=== PATIENT | female | born 1950 | race Native Hawaiian/Other Pacific Islander ===

== ENCOUNTER 2016-11-08 10:51 | Outpatient (CLI) | payer OTHER ==
[~2016-11-08 10:51] MED LIST: AMIT25TA22 PO; ATIVAN2 MG PO; BUSPIRONE10 MG PO; CALCIUM 502 PO; CELEBREX200 MG PO; CLONIDINE0.1 MG PO; D32000 UNIT PO; FURO40TA93 PO; LORA2TAB7; PANT40TA PO; STOOL SOFTNR100 MG PO; TRAM50TA PO; WELLBUTRIN150 MG PO
[2016-11-08 11:12] LABS: POTASSIUM 3.9 mmol/L (3.6-5.2); SODIUM 140 mmol/L (136-145)
== END 2016-11-08 19:01 | disposition home or self-care (01) ==
LOC: LABW 10:51
PROVIDERS: Internal Medicine Cardiovascular Disease
DX: I48.92 Unspecified atrial flutter (principal)
CPT/HCPCS: 36415; 80048

== ENCOUNTER 2016-11-16 01:16 | Outpatient (CLI) | payer OTHER ==
[2016-11-16] MEDS ORDERED: PACERONE200 MG PO (02:46)
[2016-11-16] MEDS ORDERED: ELIQUIS5 MG PO (02:46)
[2016-11-16] MEDS ORDERED: POT CHLORIDE10 MEQ PO (02:47)
[2016-11-16] MEDS ORDERED: TEMA15CA19 PO (02:47)
[2016-11-16] MEDS ORDERED: NITROSTAT0.4 MG SL (02:48)
[2016-11-16] MEDS ORDERED: IBUPROFEN200 M1 PO (02:50)
== END 2016-11-16 01:24 | disposition short-term general hospital (02) ==
LOC: AMB 01:16
DX: R07.89 Other chest pain (principal)
CPT/HCPCS: A0425; A0427

== ENCOUNTER 2016-11-16 01:25 | Observation (INO) | payer OTHER ==
[~2016-11-16] VITALS: Ht 157.5 cm; Wt 59.0 kg
[2016-11-16 02:03] VITALS: BP 128/80; TEMP 209.5
[2016-11-16 02:24] LABS: PARTIAL THROMBOPLASTIN TIME 29.1 SECONDS (24.5-33.6); PLATELET COUNT 310 K/uL (152-353)
[2016-11-16 02:28] LABS: POTASSIUM 5.1 mmol/L (3.6-5.2); SODIUM 141 mmol/L (136-145)
[2016-11-16] MEDS ORDERED: ELIQUIS5 MG PO (02:46)
[2016-11-16] MEDS ORDERED: PACERONE200 MG PO (02:46)
[2016-11-16] MEDS ORDERED: TEMA15CA19 PO (02:47)
[2016-11-16] MEDS ORDERED: POT CHLORIDE10 MEQ PO (02:47)
[2016-11-16] MEDS ORDERED: NITROSTAT0.4 MG SL (02:48)
[2016-11-16] MEDS ORDERED: IBUPROFEN200 M1 PO (02:50)
[2016-11-16 07:12] VITALS: BP 105/63; TEMP 98.6; Ht 157.5 cm; Wt 59.0 kg
--- NOTE | 2016-11-16 07:33 | NUR ---
11/16/16 0513 ADMITTED PATIENT TO ROOM 1107 DX PNEUMONIA+CHEST PAIN.ORIENTED TO ROOM CALL LIGHT WITHIN REACH.CC
[2016-11-16 08:22] VITALS: BP 93/59; TEMP 98.5
[2016-11-16 12:00] VITALS: BP 97/55; TEMP 98.7
[2016-11-16 16:00] VITALS: BP 96/58; TEMP 97.8
[2016-11-16 20:00] VITALS: BP 113/58; TEMP 98.63
[2016-11-17] VITALS: BP 107/38; TEMP 98
[2016-11-17 04:00] VITALS: BP 104/63; TEMP 97.8
[2016-11-17 04:27] LABS: PLATELET COUNT 281 K/uL (152-353)
[2016-11-17 04:32] LABS: POTASSIUM 4.2 mmol/L (3.6-5.2); SODIUM 140 mmol/L (136-145)
[2016-11-17 08:00] VITALS: BP 108/65; TEMP 98.6
[2016-11-17 12:00] VITALS: BP 106/63; TEMP 98.3
--- NOTE | 2016-11-17 13:22 | NUR ---
IV SITE D/C'D WITH TIP INTACT AND SITE CARE DONE.
--- NOTE | 2016-11-17 14:03 | NUR ---
PT OUT VIA W/C PER [facility] PCT WITH NAD.
== END 2016-11-17 14:00 | disposition home or self-care (01) ==
LOC: ED 01:25 → MED/SURG 03:15
PROVIDERS: ADMIT Emergency Medicine
DX: J18.8 Other pneumonia, unspecified organism (principal); A26.0 Cutaneous erysipeloid; R07.89 Other chest pain; R06.02 Shortness of breath
CPT/HCPCS: 36415; 80048; 80053; 81000; 82550; 83880; 84484; 85027; 85379; 85610; 85730; 86618; 87040; 93005; 94640; 94664; 94760; 96361; 96365; 96366; 96367; 99220; 99284; G0378; J1885; J2270; J2405

== ENCOUNTER 2016-11-24 10:23 | Outpatient (CLI) | payer OTHER ==
[~2016-11-24 10:23] MED LIST changes: +ELIQUIS5 MG PO; +IBUPROFEN200 M1 PO; +NITROSTAT0.4 MG SL; +PACERONE200 MG PO; +POT CHLORIDE10 MEQ PO; +TEMA15CA19 PO
== END 2016-11-24 12:00 | disposition home or self-care (01) ==
LOC: RESP 10:23
DX: R56.9 Unspecified convulsions (principal); R06.09 Other forms of dyspnea

== ENCOUNTER 2016-12-04 12:49 | Outpatient (CLI) | payer OTHER | END 2016-12-04 17:56 | disposition home or self-care (01) | LOC: LABW 12:49 | DX: J18.9 Pneumonia, unspecified organism (principal); W57.XXXA Bitten or stung by nonvenomous insect and other nonvenomous arthropods, initial encounter | CPT/HCPCS: 36415; 86618 ==

== ENCOUNTER 2017-05-22 11:44 | Outpatient (CLI) | payer OTHER ==
[2017-05-22 12:02] LABS: PLATELET COUNT 336 K/uL (152-353)
== END 2017-05-22 18:59 | disposition home or self-care (01) ==
LOC: LABW 11:44
PROVIDERS: Internal Medicine
DX: K92.1 Melena (principal)
CPT/HCPCS: 36415; 85027

== ENCOUNTER 2017-06-05 16:18 | Outpatient (CLI) | payer OTHER ==
[2017-06-05 16:34] LABS: PLATELET COUNT 666 K/uL (152-353)
== END 2017-06-06 05:22 | disposition home or self-care (01) ==
LOC: LABW 16:18
PROVIDERS: Physician Assistant
DX: D50.0 Iron deficiency anemia secondary to blood loss (chronic) (principal)
CPT/HCPCS: 36415; 85027

== ENCOUNTER 2017-06-10 08:58 | Outpatient (CLI) | payer OTHER ==
[2017-06-10 13:54] LABS: PLATELET COUNT 577 K/uL (152-353)
== END 2017-06-10 19:37 | disposition home or self-care (01) ==
LOC: RAD 08:58
PROVIDERS: Physician Assistant
DX: D50.0 Iron deficiency anemia secondary to blood loss (chronic) (principal); K92.1 Melena
CPT/HCPCS: 36415; 85027

== ENCOUNTER 2017-06-19 13:07 | Outpatient (CLI) | payer OTHER ==
[2017-06-19 15:00] LABS: PLATELET COUNT 536 K/uL (152-353)
== END 2017-06-19 19:32 | disposition home or self-care (01) ==
LOC: LABW 13:07
PROVIDERS: Internal Medicine
DX: D64.89 Other specified anemias (principal)
CPT/HCPCS: 36415; 85027

== ENCOUNTER 2017-06-30 12:23 | Outpatient (CLI) | payer OTHER ==
[2017-06-30 12:44] LABS: PLATELET COUNT 521 K/uL (152-353)
[2017-06-30 12:51] LABS: POTASSIUM 4.1 mmol/L (3.6-5.2)
== END 2017-06-30 23:04 | disposition home or self-care (01) ==
LOC: LABW 12:23
PROVIDERS: Internal Medicine
DX: K92.1 Melena (principal); N18.2 Chronic kidney disease, stage 2 (mild); D64.89 Other specified anemias
CPT/HCPCS: 36415; 80069; 85027

== ENCOUNTER 2017-07-06 13:57 | Outpatient (CLI) | payer OTHER | END 2017-07-06 20:27 | disposition home or self-care (01) | LOC: LABW 13:57 | DX: D64.89 Other specified anemias (principal) | CPT/HCPCS: 82272 ==

== ENCOUNTER 2017-07-07 10:04 | Outpatient (CLI) | payer OTHER | END 2017-07-07 20:05 | disposition home or self-care (01) | LOC: LAB 10:04 | DX: D64.89 Other specified anemias (principal) | CPT/HCPCS: 82272 ==

== ENCOUNTER 2017-07-09 11:14 | Outpatient (CLI) | payer OTHER ==
[2017-07-09 11:47] LABS: PLATELET COUNT 545 K/uL (152-353)
== END 2017-07-09 22:18 | disposition home or self-care (01) ==
LOC: LABW 11:14
PROVIDERS: Internal Medicine
DX: D64.89 Other specified anemias (principal)
CPT/HCPCS: 36415; 85027

== ENCOUNTER 2017-07-12 06:51 | Outpatient (CLI) | payer OTHER | END 2017-07-12 22:52 | disposition home or self-care (01) | LOC: LAB 06:51 | DX: D64.89 Other specified anemias (principal) | CPT/HCPCS: 82272 ==

== ENCOUNTER 2017-07-22 14:43 | Outpatient (CLI) | payer OTHER ==
[2017-07-22 15:07] LABS: PLATELET COUNT 527 K/uL (152-353)
== END 2017-07-22 22:13 | disposition home or self-care (01) ==
LOC: LABW 14:43
PROVIDERS: Internal Medicine
DX: D64.89 Other specified anemias (principal)
CPT/HCPCS: 36415; 85027

== ENCOUNTER 2017-08-18 15:40 | Outpatient (CLI) | payer OTHER ==
[2017-08-18 15:58] LABS: PLATELET COUNT 528 K/uL (152-353)
== END 2017-08-18 18:00 ==
LOC: LABW 15:40
PROVIDERS: Internal Medicine Gastroenterology
DX: D64.89 Other specified anemias (principal)
CPT/HCPCS: 36415; 85027

== ENCOUNTER 2017-08-20 12:09 | Outpatient (CLI) | payer OTHER | END 2017-08-20 22:57 | disposition home or self-care (01) | LOC: LAB 12:09 | DX: D64.89 Other specified anemias (principal) | CPT/HCPCS: 82272 ==

== ENCOUNTER 2017-08-31 14:03 | Outpatient (CLI) | payer OTHER ==
[2017-08-31 14:26] LABS: PLATELET COUNT 552 K/uL (152-353)
== END 2017-08-31 23:38 | disposition home or self-care (01) ==
LOC: LABW 14:03
PROVIDERS: Internal Medicine
DX: D64.89 Other specified anemias (principal)
CPT/HCPCS: 36415; 85027

== ENCOUNTER 2017-09-18 09:00 | Outpatient (CLI) | payer OTHER ==
[2017-09-18 09:27] LABS: PLATELET COUNT 524 K/uL (152-353)
== END 2017-09-18 22:24 | disposition home or self-care (01) ==
LOC: LABW 09:00
PROVIDERS: Internal Medicine
DX: D64.89 Other specified anemias (principal)
CPT/HCPCS: 36415; 85027

== ENCOUNTER 2017-10-06 11:18 | Outpatient (CLI) | payer OTHER ==
[2017-10-06 11:46] LABS: PLATELET COUNT 350 K/uL (152-353)
== END 2017-10-06 19:58 | disposition home or self-care (01) ==
LOC: LABW 11:18
PROVIDERS: Internal Medicine
DX: D64.89 Other specified anemias (principal)
CPT/HCPCS: 36415; 85027

== ENCOUNTER 2017-10-27 13:27 | Outpatient (CLI) | payer OTHER ==
[2017-10-27 13:47] LABS: PLATELET COUNT 366 K/uL (152-353)
== END 2017-10-27 19:53 | disposition home or self-care (01) ==
LOC: LABW 13:27
PROVIDERS: Internal Medicine
DX: D64.89 Other specified anemias (principal)
CPT/HCPCS: 36415; 85027

== ENCOUNTER 2017-11-16 13:36 | Outpatient (CLI) | payer OTHER ==
[2017-11-16 13:54] LABS: PLATELET COUNT 333 K/uL (152-353)
== END 2017-11-16 22:42 | disposition home or self-care (01) ==
LOC: LABW 13:36
PROVIDERS: Internal Medicine
DX: D64.89 Other specified anemias (principal)
CPT/HCPCS: 36415; 85027

== ENCOUNTER 2017-11-30 10:00 | Outpatient (CLI) | payer OTHER ==
[2017-11-30 10:38] LABS: PLATELET COUNT 316 K/uL (152-353)
== END 2017-11-30 19:44 | disposition home or self-care (01) ==
LOC: LABW 10:00
PROVIDERS: Internal Medicine
DX: D64.89 Other specified anemias (principal)
CPT/HCPCS: 36415; 85027

== ENCOUNTER 2018-01-01 09:00 | Outpatient (CLI) | payer OTHER ==
[2018-01-01 10:58] LABS: PLATELET COUNT 317 K/uL (152-353)
== END 2018-01-01 19:16 | disposition home or self-care (01) ==
LOC: LABW 09:00
PROVIDERS: Internal Medicine
DX: D64.9 Anemia, unspecified (principal); J18.9 Pneumonia, unspecified organism; R68.83 Chills (without fever)
CPT/HCPCS: 36415; 85027

== ENCOUNTER 2018-07-07 15:51 | Outpatient (CLI) | payer OTHER ==
[2018-07-07 16:04] LABS: PLATELET COUNT 337 K/uL (152-353)
== END 2018-07-07 19:29 | disposition home or self-care (01) ==
LOC: LABW 15:51
PROVIDERS: Internal Medicine
DX: D64.9 Anemia, unspecified (principal)
CPT/HCPCS: 83540; 85027

== ENCOUNTER 2018-07-28 10:56 | Outpatient (CLI) | payer OTHER ==
[2018-07-28 11:17] LABS: PLATELET COUNT 312 K/uL (152-353)
[2018-07-28 12:07] LABS: POTASSIUM 3.6 mmol/L (3.6-5.2)
== END 2018-07-28 19:46 | disposition home or self-care (01) ==
LOC: LABW 10:56
PROVIDERS: Internal Medicine
DX: E11.9 Type 2 diabetes mellitus without complications (principal)
CPT/HCPCS: 36415; 80053; 80061; 81000; 82043; 82570; 83036; 84439; 84443; 85027

== ENCOUNTER 2019-01-04 09:05 | Outpatient (CLI) | payer OTHER ==
[2019-01-04 10:23] LABS: POTASSIUM 4.2 mmol/L (3.6-5.2)
[2019-01-04 10:37] LABS: PLATELET COUNT 297 K/uL (152-353)
== END 2019-01-04 23:15 | disposition home or self-care (01) ==
LOC: LABW 09:05
PROVIDERS: Internal Medicine
DX: I48.92 Unspecified atrial flutter (principal); E11.9 Type 2 diabetes mellitus without complications; M81.0 Age-related osteoporosis without current pathological fracture; F32.89 Other specified depressive episodes
CPT/HCPCS: 36415; 80053; 80061; 81000; 82306; 83036; 84439; 84443; 85027

== ENCOUNTER 2019-03-29 15:42 | Outpatient (CLI) | payer OTHER | END 2019-03-29 20:21 | disposition home or self-care (01) | LOC: LABW 15:42 | DX: E53.8 Deficiency of other specified B group vitamins (principal) | CPT/HCPCS: 36415; 82525; 82607 ==

== ENCOUNTER 2019-05-04 08:37 | Outpatient (CLI) | payer OTHER | END 2019-05-04 20:36 | disposition home or self-care (01) | LOC: LABW 08:37 | DX: E53.8 Deficiency of other specified B group vitamins (principal) | CPT/HCPCS: 36415; 82525; 82607 ==

== ENCOUNTER 2019-05-30 08:56 | Outpatient (CLI) | payer OTHER | END 2019-05-30 21:40 | disposition home or self-care (01) | LOC: LABW 08:56 | DX: E53.8 Deficiency of other specified B group vitamins (principal) | CPT/HCPCS: 36415; 82525; 82607 ==

== ENCOUNTER 2019-07-04 11:34 | Outpatient (CLI) | payer OTHER | END 2019-07-04 19:14 | disposition home or self-care (01) | LOC: LABW 11:34 | DX: E53.8 Deficiency of other specified B group vitamins (principal) | CPT/HCPCS: 36415; 82525; 82607 ==

== ENCOUNTER 2019-07-28 10:06 | Outpatient (CLI) | payer OTHER | END 2019-07-28 20:54 | disposition home or self-care (01) | LOC: LAB 10:06 | DX: E53.8 Deficiency of other specified B group vitamins (principal) | CPT/HCPCS: 82525; 82607 ==

== ENCOUNTER 2019-10-17 15:00 | Outpatient (CLI) | payer OTHER | END 2019-10-17 19:44 | disposition home or self-care (01) | LOC: RAD 15:00 | DX: R09.1 Pleurisy (principal) ==

== ENCOUNTER 2019-11-14 08:10 | Outpatient (CLI) | payer OTHER | END 2019-11-14 22:03 | disposition home or self-care (01) | LOC: LABW 08:10 | DX: E53.8 Deficiency of other specified B group vitamins (principal) | CPT/HCPCS: 36415; 82525; 82607 ==

== ENCOUNTER 2019-12-16 08:38 | Outpatient (CLI) | payer OTHER | END 2019-12-16 23:04 | disposition home or self-care (01) | LOC: LABW 08:38 | PROVIDERS: ATTEND Internal Medicine | DX: E53.8 Deficiency of other specified B group vitamins (principal) | CPT/HCPCS: 36415; 82525; 82607 ==

== ENCOUNTER 2019-12-27 08:50 | Outpatient (CLI) | payer OTHER | END 2019-12-27 21:22 | disposition home or self-care (01) | LOC: LABW 08:50 | DX: E53.8 Deficiency of other specified B group vitamins (principal) | CPT/HCPCS: 36415; 82525; 82607 ==

== ENCOUNTER 2020-02-17 08:08 | Outpatient (CLI) | payer OTHER | END 2020-02-17 23:23 | disposition home or self-care (01) | LOC: LABW 08:08 | DX: E53.8 Deficiency of other specified B group vitamins (principal) | CPT/HCPCS: 36415; 82525; 82607 ==

== ENCOUNTER 2020-03-19 08:47 | Emergency (ER) | payer OTHER ==
[~2020-03-19] VITALS: Ht 157.5 cm; Wt 54.4 kg
[2020-03-19 08:47] VITALS: TEMP 98.4
[2020-03-19 09:22] LABS: POTASSIUM 3.2 mmol/L (3.6-5.2)
[2020-03-19 09:54] LABS: PLATELET COUNT 256 K/uL (152-353)
[2020-03-19 13:53] VITALS: BP 97/48
== END 2020-03-19 14:06 | disposition short-term general hospital (02) ==
LOC: ED 08:47
PROVIDERS: Emergency Medicine Emergency Medical Services
PROC: 0T9B70Z Drainage of Bladder with Drainage Device, Via Natural or Artificial Opening (ICD-10-PCS; principal; 2020-03-19)
PROC: 0D9670Z Drainage of Stomach with Drainage Device, Via Natural or Artificial Opening (ICD-10-PCS; 2020-03-19)
DX: K56.609 Unspecified intestinal obstruction, unspecified as to partial versus complete obstruction (principal)
CPT/HCPCS: 43754; 51702; 80053; 81000; 83605; 83690; 85007; 85027; 87040; 96360; 96361; 96365; 99284; J2543; J3370

== ENCOUNTER 2020-04-20 10:53 | Outpatient (CLI) | payer OTHER ==
[2020-04-20 11:26] LABS: PLATELET COUNT 443 K/uL (152-353)
== END 2020-04-20 19:32 | disposition home or self-care (01) ==
LOC: LAB 10:53
PROVIDERS: ATTEND Internal Medicine
DX: Z48.815 Encounter for surgical aftercare following surgery on the digestive system (principal); K56.51 Intestinal adhesions [bands], with partial obstruction; K63.1 Perforation of intestine (nontraumatic); E11.9 Type 2 diabetes mellitus without complications; K21.9 Gastro-esophageal reflux disease without esophagitis; D51.0 Vitamin B12 deficiency anemia due to intrinsic factor deficiency; E03.8 Other specified hypothyroidism
CPT/HCPCS: 80053; 81000; 83036; 84439; 84443; 85027

== ENCOUNTER 2020-05-03 10:51 | Emergency (ER) | payer OTHER ==
[~2020-05-03] VITALS: Ht 157.5 cm; Wt 51.7 kg
[2020-05-03 12:20] VITALS: BP 115/71; TEMP 97.5
== END 2020-05-03 12:20 | disposition home or self-care (01) ==
LOC: ED 10:51
DX: U07.1 COVID-19 (principal)
CPT/HCPCS: 87635; 99282; U0003

== ENCOUNTER 2020-08-14 12:48 | Outpatient (CLI) | payer OTHER | END 2020-08-14 20:49 | disposition home or self-care (01) | LOC: LAB 12:48 | PROVIDERS: ATTEND Internal Medicine | DX: E53.8 Deficiency of other specified B group vitamins (principal) | CPT/HCPCS: 82607 ==

== ENCOUNTER 2020-08-15 10:32 | Outpatient (CLI) | payer OTHER | END 2020-08-15 22:11 | disposition home or self-care (01) | LOC: LAB 10:32 | PROVIDERS: ATTEND Internal Medicine | DX: E53.8 Deficiency of other specified B group vitamins (principal) | CPT/HCPCS: 82525 ==

== ENCOUNTER 2020-09-12 11:03 | Outpatient (CLI) | payer OTHER | END 2020-09-12 21:32 | disposition home or self-care (01) | LOC: LAB 11:03 | PROVIDERS: ATTEND Internal Medicine | DX: D51.8 Other vitamin B12 deficiency anemias (principal) | CPT/HCPCS: 82525; 82607 ==

== ENCOUNTER 2020-10-09 13:00 | Outpatient (CLI) | payer OTHER | END 2020-10-09 22:04 | disposition home or self-care (01) | LOC: LAB 13:00 | PROVIDERS: ATTEND Internal Medicine | DX: E53.8 Deficiency of other specified B group vitamins (principal) | CPT/HCPCS: 82525; 82607 ==

== ENCOUNTER 2020-11-06 14:28 | Outpatient (CLI) | payer OTHER | END 2020-11-06 22:46 | disposition home or self-care (01) | LOC: LAB 14:28 | PROVIDERS: ATTEND Internal Medicine | DX: E11.9 Type 2 diabetes mellitus without complications (principal); E53.8 Deficiency of other specified B group vitamins | CPT/HCPCS: 82525; 82607 ==

== ENCOUNTER 2020-11-28 12:00 | Outpatient (CLI) | payer OTHER ==
[2020-12-05 14:22] LABS: PLATELET COUNT 334 K/uL (152-353)
[2020-12-05 14:23] LABS: POTASSIUM 4.6 mmol/L (3.6-5.2)
== END 2020-11-28 23:59 | disposition home or self-care (01) ==
LOC: LAB 12:00
PROVIDERS: ATTEND Internal Medicine
DX: E11.9 Type 2 diabetes mellitus without complications (principal); D51.9 Vitamin B12 deficiency anemia, unspecified
CPT/HCPCS: 80053; 80061; 81000; 82043; 82570; 83036; 84439; 84443; 85027

== ENCOUNTER 2020-12-04 12:20 | Outpatient (CLI) | payer OTHER | END 2020-12-04 19:17 | disposition home or self-care (01) | LOC: LAB 12:20 | PROVIDERS: ATTEND Internal Medicine | DX: D51.8 Other vitamin B12 deficiency anemias (principal); D64.89 Other specified anemias; M79.10 Myalgia, unspecified site | CPT/HCPCS: 82525; 82607 ==

== ENCOUNTER 2020-12-12 09:35 | Outpatient (CLI) | payer OTHER ==
[~2020-12-12] VITALS: Ht 157.5 cm; Wt 55.8 kg
== END 2020-12-12 21:28 | disposition home or self-care (01) ==
LOC: INF 09:35
PROVIDERS: ATTEND Internal Medicine
DX: D50.8 Other iron deficiency anemias (principal)
CPT/HCPCS: 96365; Q0138

== ENCOUNTER 2020-12-20 10:54 | Outpatient (CLI) | payer OTHER ==
[~2020-12-20] VITALS: Ht 157.5 cm; Wt 55.8 kg
[2020-12-20 11:29] VITALS: BP 102/59; TEMP 98.9
== END 2020-12-20 21:04 | disposition home or self-care (01) ==
LOC: INF 10:54
PROVIDERS: ATTEND Internal Medicine
DX: D50.9 Iron deficiency anemia, unspecified (principal)
CPT/HCPCS: 96365; Q0138

== ENCOUNTER 2021-01-01 09:31 | Outpatient (CLI) | payer OTHER | END 2021-01-01 19:19 | disposition home or self-care (01) | LOC: LABW 09:31 | PROVIDERS: ATTEND Internal Medicine | DX: D64.9 Anemia, unspecified (principal) | CPT/HCPCS: 36415; 82728 ==

== ENCOUNTER 2021-01-18 12:42 | Outpatient (CLI) | payer OTHER | END 2021-01-18 19:07 | disposition home or self-care (01) | LOC: LABW 12:42 | PROVIDERS: ATTEND Internal Medicine | DX: D64.9 Anemia, unspecified (principal); D51.9 Vitamin B12 deficiency anemia, unspecified; M79.10 Myalgia, unspecified site | CPT/HCPCS: 36415; 82525; 82607; 82728 ==

== ENCOUNTER 2021-03-08 13:57 | Outpatient (CLI) | payer OTHER | END 2021-03-08 19:45 | disposition home or self-care (01) | LOC: LABW 13:57 | PROVIDERS: ATTEND Internal Medicine | DX: D64.89 Other specified anemias (principal); D51.8 Other vitamin B12 deficiency anemias; M79.18 Myalgia, other site | CPT/HCPCS: 36415; 82525; 82607 ==

== ENCOUNTER 2021-06-25 11:41 | Outpatient (CLI) | payer OTHER | END 2021-06-25 19:01 | disposition home or self-care (01) | LOC: CT 11:41 | PROVIDERS: ATTEND Internal Medicine | DX: S09.8XXA Other specified injuries of head, initial encounter (principal); R09.1 Pleurisy; M25.552 Pain in left hip; Z79.899 Other long term (current) drug therapy; Z91.81 History of falling; Y92.9 Unspecified place or not applicable; E11.9 Type 2 diabetes mellitus without complications; E03.8 Other specified hypothyroidism; D51.0 Vitamin B12 deficiency anemia due to intrinsic factor deficiency; E61.0 Copper deficiency | CPT/HCPCS: 36415; 80061; 81000; 82525; 82607; 83036; 84439; 84443 ==

== ENCOUNTER 2021-08-05 13:42 | Outpatient (CLI) | payer OTHER | END 2021-08-05 19:45 | disposition home or self-care (01) | LOC: RAD 13:42 | PROVIDERS: ATTEND Physician Assistant | DX: M79.672 Pain in left foot (principal) ==

== ENCOUNTER 2021-10-30 11:17 | Outpatient (CLI) | payer OTHER | END 2021-10-30 19:14 | disposition home or self-care (01) | LOC: CT 11:17 | PROVIDERS: ATTEND Internal Medicine | DX: M54.42 Lumbago with sciatica, left side (principal); M25.552 Pain in left hip ==

== ENCOUNTER 2021-12-03 10:14 | Outpatient (CLI) | payer OTHER ==
[2021-12-03 11:04] LABS: PLATELET COUNT 259 K/uL (152-353)
== END 2021-12-03 18:52 | disposition home or self-care (01) ==
LOC: LABW 10:14
PROVIDERS: ATTEND Internal Medicine
DX: R79.89 Other specified abnormal findings of blood chemistry (principal); D64.89 Other specified anemias
CPT/HCPCS: 36415; 84439; 84443; 85027

== ENCOUNTER 2021-12-23 09:07 | Emergency (ER) | payer OTHER ==
[~2021-12-23] VITALS: Ht 157.5 cm; Wt 55.8 kg
[2021-12-23 09:13] VITALS: TEMP 97.3
[2021-12-23 10:06] LABS: PLATELET COUNT 278 K/uL (152-353)
[2021-12-23 10:27] LABS: POTASSIUM 4.5 mmol/L (3.6-5.2)
[2021-12-23 12:37] VITALS: BP 148/72
== END 2021-12-23 12:59 | disposition home or self-care (01) ==
LOC: ED 09:07
PROVIDERS: Emergency Medicine Emergency Medical Services
DX: S00.03XA Contusion of scalp, initial encounter (principal); S16.1XXA Strain of muscle, fascia and tendon at neck level, initial encounter; S29.012A Strain of muscle and tendon of back wall of thorax, initial encounter; S39.012A Strain of muscle, fascia and tendon of lower back, initial encounter; R07.89 Other chest pain; W19.XXXA Unspecified fall, initial encounter; Z91.81 History of falling; Y92.89 Other specified places as the place of occurrence of the external cause
CPT/HCPCS: 80048; 83735; 85027; 93005; 99283

== ENCOUNTER 2022-01-08 13:03 | Outpatient (CLI) | payer OTHER ==
[~2022-01-08] VITALS: Ht 157.5 cm; Wt 56.2 kg
[2022-01-08 13:10] VITALS: BP 122/90; TEMP 98.5
== END 2022-01-08 19:25 | disposition home or self-care (01) ==
LOC: INF 13:03
PROVIDERS: ATTEND Internal Medicine
DX: D50.0 Iron deficiency anemia secondary to blood loss (chronic) (principal)
CPT/HCPCS: Q0138

== ENCOUNTER 2022-01-15 12:35 | Outpatient (CLI) | payer OTHER ==
[~2022-01-15] VITALS: Ht 157.5 cm; Wt 56.2 kg
[2022-01-15 12:40] VITALS: BP 145/71; TEMP 98.4
[2022-01-15 14:05] VITALS: BP 135/66; TEMP 98.3
== END 2022-01-15 23:00 | disposition home or self-care (01) ==
LOC: INF 12:35
PROVIDERS: ATTEND Internal Medicine
DX: D50.0 Iron deficiency anemia secondary to blood loss (chronic) (principal)
CPT/HCPCS: 96365; Q0138

== ENCOUNTER 2022-03-10 10:11 | Outpatient (CLI) | payer OTHER ==
[2022-03-10 10:44] LABS: PLATELET COUNT 267 K/uL (152-353)
[2022-03-10 11:07] LABS: POTASSIUM 4.6 mmol/L (3.6-5.2)
== END 2022-03-10 18:59 | disposition home or self-care (01) ==
LOC: LABW 10:11
PROVIDERS: ATTEND Internal Medicine
DX: I10 Essential (primary) hypertension (principal); E03.8 Other specified hypothyroidism; E11.9 Type 2 diabetes mellitus without complications; G60.8 Other hereditary and idiopathic neuropathies; Z85.3 Personal history of malignant neoplasm of breast; Z08 Encounter for follow-up examination after completed treatment for malignant neoplasm
CPT/HCPCS: 36415; 80053; 83036; 83540; 83735; 84439; 84443; 85027; 86300

== ENCOUNTER 2022-03-11 12:42 | Outpatient (CLI) | payer OTHER | END 2022-03-11 19:36 | disposition home or self-care (01) | LOC: LAB 12:42 | PROVIDERS: ATTEND Internal Medicine | DX: E11.9 Type 2 diabetes mellitus without complications (principal); I10 Essential (primary) hypertension; G60.8 Other hereditary and idiopathic neuropathies | CPT/HCPCS: 36415; 81002; 82525 ==

== ENCOUNTER 2022-08-05 11:34 | Outpatient (CLI) | payer OTHER ==
[2022-08-05 12:03] LABS: PLATELET COUNT 268 K/uL (152-353)
[2022-08-05 12:31] LABS: POTASSIUM 4.3 mmol/L (3.6-5.2)
== END 2022-08-05 20:39 | disposition home or self-care (01) ==
LOC: LABW 11:34
PROVIDERS: ATTEND Internal Medicine
DX: I10 Essential (primary) hypertension (principal); E61.0 Copper deficiency; F32.9 Major depressive disorder, single episode, unspecified; R79.89 Other specified abnormal findings of blood chemistry
CPT/HCPCS: 36415; 80053; 80061; 82525; 83540; 84439; 84443; 85027

== ENCOUNTER 2022-08-07 12:01 | Outpatient (CLI) | payer OTHER ==
[~2022-08-07] VITALS: Ht 157.5 cm; Wt 61.7 kg
[2022-08-07 12:15] VITALS: BP 154/67; TEMP 97.9
== END 2022-08-07 16:00 | disposition home or self-care (01) ==
LOC: INF 12:01
PROVIDERS: ATTEND Internal Medicine
DX: N39.0 Urinary tract infection, site not specified (principal)
CPT/HCPCS: 96365; J0696

== ENCOUNTER 2022-08-08 10:10 | Outpatient (CLI) | payer OTHER ==
[~2022-08-08] VITALS: Ht 157.5 cm; Wt 197.8 kg
[2022-08-08 10:18] VITALS: BP 147/68; TEMP 98.2
[2022-08-08 11:22] VITALS: BP 145/73; TEMP 98.3
== END 2022-08-08 19:30 | disposition home or self-care (01) ==
LOC: INF 10:10
PROVIDERS: ATTEND Internal Medicine
DX: N39.0 Urinary tract infection, site not specified (principal)
CPT/HCPCS: 96365; J0696

== ENCOUNTER 2022-08-09 11:53 | Outpatient (CLI) | payer OTHER ==
[~2022-08-09] VITALS: Ht 157.5 cm; Wt 61.7 kg
== END 2022-08-09 18:56 | disposition home or self-care (01) ==
LOC: INF 11:53
PROVIDERS: ATTEND Internal Medicine
DX: N39.0 Urinary tract infection, site not specified (principal)
CPT/HCPCS: 96365; J0696

== ENCOUNTER 2022-08-10 13:18 | Outpatient (CLI) | payer OTHER ==
[~2022-08-10] VITALS: Ht 157.5 cm; Wt 61.7 kg
== END 2022-08-10 19:30 | disposition home or self-care (01) ==
LOC: INF 13:18
PROVIDERS: ATTEND Internal Medicine
DX: N39.0 Urinary tract infection, site not specified (principal)
CPT/HCPCS: 96365; J0696

== ENCOUNTER 2022-08-11 12:15 | Outpatient (CLI) | payer OTHER ==
[~2022-08-11] VITALS: Ht 157.5 cm; Wt 61.7 kg
[2022-08-11 12:22] VITALS: BP 128/57; TEMP 98.1
[2022-08-11 13:08] VITALS: BP 129/59; TEMP 98.1
== END 2022-08-11 19:05 | disposition home or self-care (01) ==
LOC: INF 12:15
PROVIDERS: ATTEND Internal Medicine
DX: N39.0 Urinary tract infection, site not specified (principal)
CPT/HCPCS: 96365; J0696

== ENCOUNTER 2022-08-13 11:42 | Outpatient (CLI) | payer OTHER ==
[~2022-08-13] VITALS: Ht 157.5 cm; Wt 61.7 kg
[2022-08-13 11:50] VITALS: BP 154/74; TEMP 98.1
[2022-08-13 12:53] VITALS: BP 160/76; TEMP 98.2
== END 2022-08-13 19:41 | disposition home or self-care (01) ==
LOC: INF 11:42
PROVIDERS: ATTEND Internal Medicine
DX: N39.0 Urinary tract infection, site not specified (principal)
CPT/HCPCS: 96365; J0696

== ENCOUNTER 2022-08-20 13:28 | Outpatient (CLI) | payer OTHER | END 2022-08-20 23:05 | LOC: LABW 13:28 | PROVIDERS: ATTEND Internal Medicine | DX: N39.0 Urinary tract infection, site not specified (principal) | CPT/HCPCS: 87086; 87088 ==

== ENCOUNTER 2022-09-22 13:35 | Outpatient (CLI) | payer OTHER | END 2022-09-22 19:00 | disposition home or self-care (01) | LOC: CT 13:35 | PROVIDERS: ATTEND Nurse Practitioner Family | DX: R51.9 Headache, unspecified (principal) ==

== ENCOUNTER 2022-10-23 13:36 | Outpatient (CLI) | payer OTHER | END 2022-10-23 17:00 | disposition home or self-care (01) | LOC: LAB 13:36 | PROVIDERS: ATTEND Nurse Practitioner Family | DX: N39.0 Urinary tract infection, site not specified (principal) | CPT/HCPCS: 81002; 87086; 87088 ==

== ENCOUNTER 2022-12-01 11:12 | Outpatient (CLI) | payer OTHER ==
[2022-12-01 11:34] LABS: PLATELET COUNT 309 K/uL (152-353)
[2022-12-01 11:48] LABS: POTASSIUM 4.8 mmol/L (3.6-5.2)
== END 2022-12-01 19:27 | disposition home or self-care (01) ==
LOC: LAB 11:12
PROVIDERS: ATTEND Internal Medicine
DX: I10 Essential (primary) hypertension (principal); D64.89 Other specified anemias
CPT/HCPCS: 80053; 85027

== ENCOUNTER 2022-12-02 22:08 | Emergency (ER) | payer OTHER ==
[~2022-12-02] VITALS: Ht 157.5 cm; Wt 61.2 kg
[2022-12-02 22:58] LABS: PLATELET COUNT 301 K/uL (152-353)
[2022-12-02 22:59] LABS: POTASSIUM 3.9 mmol/L (3.6-5.2)
[2022-12-03 01:45] VITALS: BP 134/77; TEMP 98.2
== END 2022-12-03 01:45 | disposition home or self-care (01) ==
LOC: ED 22:08
PROVIDERS: Family Medicine
DX: S00.03XA Contusion of scalp, initial encounter (principal); W19.XXXA Unspecified fall, initial encounter
CPT/HCPCS: 36415; 80053; 81002; 85027; 99284

== ENCOUNTER 2023-01-07 12:47 | Outpatient (CLI) | payer OTHER | END 2023-01-07 19:49 | disposition home or self-care (01) | LOC: LAB 12:47 | PROVIDERS: ATTEND Internal Medicine | DX: R30.0 Dysuria (principal) | CPT/HCPCS: 81000; 87077; 87086; 87088; 87186 ==

== ENCOUNTER 2023-01-08 16:47 | Emergency (ER) | payer OTHER ==
[~2023-01-08] VITALS: Ht 157.5 cm; Wt 56.7 kg
[2023-01-08 16:47] VITALS: TEMP 98.7
[2023-01-08 17:48] LABS: PLATELET COUNT 252 K/uL (152-353)
[2023-01-08 17:54] LABS: POTASSIUM 4.8 mmol/L (3.6-5.2)
[2023-01-08 19:36] VITALS: BP 131/74
== END 2023-01-08 19:36 | disposition short-term general hospital (02) ==
LOC: ED 16:47
PROVIDERS: Family Medicine
DX: I63.9 Cerebral infarction, unspecified (principal); N39.0 Urinary tract infection, site not specified; R41.0 Disorientation, unspecified
CPT/HCPCS: 51702; 80053; 81000; 83735; 84484; 85027; 87088; 93005; 96374; 99285; J2405

== ENCOUNTER 2023-02-05 10:07 | Inpatient (IN) | payer OTHER ==
[~2023-02-05] VITALS: Ht 157.5 cm; Wt 56.4 kg
[2023-02-05 10:07] VITALS: BP 120/56; TEMP 98.2
[2023-02-05 11:15] VITALS: BP 105/63
[2023-02-05 11:24] LABS: PLATELET COUNT 267 K/uL (152-353)
[2023-02-05 11:29] LABS: POTASSIUM 3.5 mmol/L (3.6-5.2)
[2023-02-05 14:07] VITALS: BP 116/55; TEMP 98.1
[2023-02-05 15:00] VITALS: BP 116/55; TEMP 98.1; Ht 157.5 cm; Wt 56.4 kg
[2023-02-05 15:42] VITALS: BP 116/55; TEMP 98.1
[2023-02-05] MEDS ORDERED: [UNRECOGNIZED DRUG - OTHER] PO (16:01)
[2023-02-05] MEDS ORDERED: PANTOPRAZOLE 40MG TA PO (16:01)
[2023-02-05] MEDS ORDERED: K-TABS10 MEQ PO (16:02)
[2023-02-05] MEDS ORDERED: SERT100T PO (16:03)
[2023-02-05] MEDS ORDERED: MOBIC7.5 M1 PO (16:03)
[2023-02-05] MEDS ORDERED: CYCL10TA35 PO (16:04)
[2023-02-05] MEDS ORDERED: LIDOPATCH TOP (16:05)
[2023-02-05] MEDS ORDERED: CYAN10009 IM (16:05)
[2023-02-05] MEDS ORDERED: BUPRENORPHINE 20 MCG/HR TD (16:06)
[2023-02-05] MEDS ORDERED: HYDROMORPHONE HY4 MG PO (16:07)
[2023-02-05] MEDS ORDERED: DQZATE100 MG PO (16:07)
[2023-02-05] MEDS ORDERED: TRAZ100T PO (16:08)
[2023-02-05] MEDS ORDERED: MOVANTIK12.5 MG PO (16:08)
[2023-02-05] MEDS ORDERED: PREG75CA PO (16:09)
[2023-02-05] MEDS ORDERED: IRON INFUSION (16:10)
[2023-02-05 20:00] VITALS: BP 103/55; TEMP 99
[2023-02-06] VITALS: BP 97/53; TEMP 98.3
[2023-02-06 04:00] VITALS: BP 116/59; TEMP 98.5
[2023-02-06 05:27] LABS: PLATELET COUNT 216 K/uL (152-353)
[2023-02-06 05:52] LABS: POTASSIUM 3.6 mmol/L (3.6-5.2)
[2023-02-06 07:52] VITALS: BP 108/61; TEMP 98.3
[2023-02-06 11:50] VITALS: BP 115/58; TEMP 98.4
[2023-02-06 15:50] VITALS: BP 109/64; TEMP 98.4
[2023-02-06 20:00] VITALS: BP 120/61; TEMP 99
[2023-02-07] VITALS: BP 91/55; TEMP 99
[2023-02-07 04:00] VITALS: BP 100/55; TEMP 98.7
[2023-02-07 06:43] LABS: PLATELET COUNT 231 K/uL (152-353)
[2023-02-07 07:14] LABS: POTASSIUM 4.1 mmol/L (3.6-5.2)
[2023-02-07 08:00] VITALS: BP 117/55; TEMP 98.3
[2023-02-07 12:09] VITALS: BP 121/63; TEMP 99
[2023-02-07 15:51] VITALS: BP 1158/57; TEMP 99
[2023-02-07 20:00] VITALS: BP 137/69; TEMP 98.5
[2023-02-08 07:51] VITALS: BP 136/61; TEMP 98.5
[2023-02-08 12:00] VITALS: BP 141/69; TEMP 98.5
== END 2023-02-08 13:22 | disposition home or self-care (01) | DRG 558 ==
LOC: ED 10:07 → MED/SURG 12:07
PROVIDERS: ADMIT Family Medicine; ATTEND Internal Medicine
DX: M62.82 Rhabdomyolysis (principal); Z86.73 Personal history of transient ischemic attack (TIA), and cerebral infarction without residual deficits; R26.81 Unsteadiness on feet; R29.6 Repeated falls; Z87.440 Personal history of urinary (tract) infections; Z98.890 Other specified postprocedural states; R51.9 Headache, unspecified; W19.XXXA Unspecified fall, initial encounter
CPT/HCPCS: 36415; 80048; 80053; 81000; 82550; 82948; 85027; 96360; 96361; 99284

== ENCOUNTER 2023-03-09 10:28 | Inpatient (IN) | payer OTHER ==
[~2023-03-09] VITALS: Ht 157.5 cm; Wt 60.1 kg
[2023-03-09 10:28] VITALS: BP 105/59; TEMP 97.3
[~2023-03-09 10:28] MED LIST changes: +BUPRENORPHINE 20 MCG/HR TD; +CYAN10009 IM; +CYCL10TA35 PO; +DQZATE100 MG PO; +HYDROMORPHONE HY4 MG PO; +IRON INFUSION; +K-TABS10 MEQ PO; +LIDOPATCH TOP; +MOBIC7.5 M1 PO; +MOVANTIK12.5 MG PO; +PANTOPRAZOLE 40MG TA PO; +PREG75CA PO; +SERT100T PO; +TRAZ100T PO; +[UNRECOGNIZED DRUG - OTHER] PO
[2023-03-09 11:28] LABS: PLATELET COUNT 383 K/uL (152-353)
[2023-03-09 14:28] VITALS: BP 115/57; TEMP 97.7
[2023-03-09 15:11] VITALS: BP 115/57; TEMP 97.4; Ht 157.5 cm; Wt 60.1 kg
[2023-03-09] MEDS ORDERED: OXYCODONE HYDRO10 MG PO (15:33)
[2023-03-09 19:30] VITALS: BP 94/55; TEMP 98.8
[2023-03-09 23:33] VITALS: BP 85/30; TEMP 98.8
[2023-03-10 03:45] VITALS: BP 79/39; TEMP 98.3
[2023-03-10 05:26] LABS: PLATELET COUNT 320 K/uL (152-353)
[2023-03-10 05:39] LABS: POTASSIUM 4.7 mmol/L (3.6-5.2)
[2023-03-10 07:57] VITALS: BP 90/44; TEMP 98.5
[2023-03-10 12:00] VITALS: BP 97/53; TEMP 98.7
[2023-03-10 16:00] VITALS: BP 109/60; TEMP 98.2
[2023-03-10 20:00] VITALS: BP 108/54; TEMP 99
[2023-03-10 23:50] VITALS: BP 100/50; TEMP 98.2
[2023-03-11 04:00] VITALS: BP 144/71; TEMP 98.3
[2023-03-11 05:10] LABS: PLATELET COUNT 274 K/uL (152-353)
[2023-03-11 05:42] LABS: POTASSIUM 4.1 mmol/L (3.6-5.2)
[2023-03-11 08:00] VITALS: BP 136/76; TEMP 97.6
[2023-03-11 12:00] VITALS: BP 136/64; TEMP 98.3
== END 2023-03-11 14:51 | disposition home or self-care (01) | DRG 690 ==
LOC: ED 10:28 → MED/SURG 11:37
PROVIDERS: ADMIT Family Medicine; ATTEND Internal Medicine
DX: N30.00 Acute cystitis without hematuria (principal); M62.82 Rhabdomyolysis; R29.6 Repeated falls; Z86.73 Personal history of transient ischemic attack (TIA), and cerebral infarction without residual deficits; D72.828 Other elevated white blood cell count; N28.89 Other specified disorders of kidney and ureter; B96.29 Other Escherichia coli [E. coli] as the cause of diseases classified elsewhere; Z98.890 Other specified postprocedural states; Z79.01 Long term (current) use of anticoagulants; S00.03XA Contusion of scalp, initial encounter; W19.XXXA Unspecified fall, initial encounter
CPT/HCPCS: 36415; 80048; 80053; 81000; 82550; 83605; 83735; 84100; 85027; 87040; 87077; 87086; 87088; 87186; 96361; 96365; 96367; 99284; J0696

== ENCOUNTER 2023-03-18 14:18 | Outpatient (CLI) | payer OTHER ==
[~2023-03-18 14:18] MED LIST changes: +OXYCODONE HYDRO10 MG PO
== END 2023-03-18 20:01 | disposition home or self-care (01) ==
LOC: US 14:18
PROVIDERS: ATTEND Internal Medicine
DX: M79.605 Pain in left leg (principal)

== ENCOUNTER 2023-07-01 06:20 | Outpatient (CLI) | payer OTHER ==
[~2023-07-01 06:20] MED LIST changes: +BACLOFEN10 MG PO; -K-TABS10 MEQ PO; +KLOR-CON M1010 MEQ PO; +MOVANTIK PO; -MOVANTIK12.5 MG PO; +NITR100C56 PO
== END 2023-07-01 19:16 | disposition home or self-care (01) ==
LOC: LAB 06:20
PROVIDERS: ATTEND Internal Medicine
DX: R53.1 Weakness (principal)